=== PATIENT | male | born 1965 | race Caucasian/White ===

== ENCOUNTER → 2023-08-02 | Outpatient (CLI) | payer OTHER, SELFPAY ==
--- NOTE | 2023-08-02 12:52 | VDLE_ITS ---
Reason For Study: RLE Edema RIGHT LEFT GSV is normal. CFV is compressible, spontaneous, phasic, CFV is compressible, spontaneous, phasic, competent, and demonstrates normal competent and demonstrates normal augmentation. augmentation. FV is compressible, spontaneous, phasic, competent and demonstrates normal augmentation. POP V is compressible, spontaneous, phasic, competent and demonstrates normal augmentation. T/P Trunk is compressible. PTV is compressible. RT PerV is compressible. Procedure This is a venous duplex using B-mode, color flow and spectral Doppler. Exam performed in department. The exam was diagnostic. A preliminary report was called and/or faxed to Dr. Marrero. VL/Venous Duplex US, Unilateral Interpretation Summary There is no evidence of right lower extremity deep vein thrombosis. Right great saphenous vein appears patent and compressible segmentally. Normal flow patterns left common f emoral vein Ordering Physician: Pancho Marrero Referring Physician: Pancho Marrero Performed By: Tony Ventura RVT
== END | disposition home or self-care (01) ==
PROVIDERS: PCP Internal Medicine Infectious Disease; Referring Provider Internal Medicine Infectious Disease; Visit Provider Internal Medicine Infectious Disease
DX: R60.0 Localized edema (principal)
CPT/HCPCS: 93971

== ENCOUNTER 2024-06-15 11:53 | Outpatient (CLI) | payer OTHER, SELFPAY ==
--- NOTE | 2024-06-15 11:59 | US_ITS ---
PROCEDURE: KIDNEY AND BLADDER ([facility]), 06/15/2024 REASON FOR EXAM: CKD3 TECHNIQUE: Grayscale and color/spectral doppler ultrasound of the kidneys and bladder was performed. COMPARISON: None FINDINGS: Right kidney: 12.6 cm in length. No visualized mass, calculus, or hydronephrosis. Left kidney: 12.8 cm in length. No visualized mass, calculus, or hydronephrosis. Bladder: Estimated volume 257 mL. Mild mass-effect by the enlarged prostate as below. Other: Prostate measures 5.0 x 5.0 x 5.7 cm with slight mass-effect on the bladder (estimated volume 74 mL). Spleen measures 15.3 x 5.9 x 6.1 cm. Liver appears somewhat echogenic. US/Kidney and Bladder IMPRESSION: 1. Unremarkable sonographic appearance of the kidneys. No hydronephrosis. 2. Appearance of the imaged liver most typically associated with steatosis. Co rrelate for clinical and laboratory evidence of chronic liver disease. 3. Prostatomegaly. 4. Splenomegaly. Reading Location: [id number]
[2024-06-15 13:32] LABS: Absolute Lymphocyte Count 2.46 X10^3/uL (0.83-4.51); Absolute Neutrophil Count 4.1 X10^3/uL (2.0-7.7); Basophil# 0.07 X10^3/uL; Basophil% 0.9 % (0-1); Eosinophil# 0.58 X10^3/uL; Eosinophils% 7.5 % (0-5); Hematocrit 45.8 % (40-54); Hemoglobin 15.8 g/dL (13.0-16.5); Lymphocyte # 2.46 X10^3/ul (0.83-4.51); Lymphocyte % 31.9 % (19-41); Mean Corp Hgb Conc 34.5 g/dL (32-36); Mean Corpuscular Hgb 29.4 pg (27.0-32.0); Mean Corpuscular Volume 85.1 fL (80-94); Mean Platelet Vol. 10.5 fl (6.2-12.0); Monocyte# 0.46 X10^3/uL; NRBC Flagged by Analyzer 0 % (0-5); Neutrophil # 4.11 X10^3/uL (2.7-7.7); Neutrophil % 53.4 % (47-70); Platelet Count 231 K/mm3 (150-450); RBC Distribution Width CV 11.9 % (11.6-14.6); RBC Distribution Width SD 36.3 fl (35.1-43.9); Red Blood Count 5.38 M/mm3 (4.6-6.2); White Blood Count 7.7 K/mm3 (4.4-11.0)
[2024-06-15 14:50] LABS: Protein, Urine (Random) 66.5 mg/dL (0.0-12.0); Protein:Creat Ratio 2254 mg/g CRE (0-200)
[2024-06-15 14:55] LABS: PTHIN 68 pg/mL (11-61)
[2024-06-15 15:20] LABS: Ferritin 145 ng/mL (37-417); Iron 113 ug/dL (65-175); Iron Binding Capacity,Total 294 ug/dL (250-450); Iron Binding Capacity,Unsat 181 ug/dL (228-428); Uric Acid 7.7 mg/dL (3.5-7.2); Vitamin D,25 Hydroxy 21.4 ng/mL (30-100)
[2024-06-15 17:44] LABS: Anion Gap 11 (5-15); BUN 17 mg/dL (4-19); BUN/Creat Ratio 13.7 RATIO (10-20); Calcium,Total 9.1 mg/dL (7.6-11.0); Carbon Dioxide 21.3 mmol/L (21.0-32.0); Chloride 104 mmol/L (98-108); Creatinine, Serum 1.24 mg/dL (0.70-1.20); EST Glomerular Filtration Rate 68 (>60); Glucose 135 mg/dL (70-99); Protein, Total 6.8 g/dL (5.9-8.4); Sodium Level 137 mmol/L (133-145)
[2024-06-18 15:08] LABS: Albumin 3.3 g/dL (2.9-4.4); Alpha-1-Globulins 0.3 g/dL (0.0-0.4); Alpha-2-Globulins 0.7 g/dL (0.4-1.0); Immunoglobulin A 490 mg/dL (90-386); Immunoglobulin G 1129 mg/dL (603-1613); Immunoglobulin M 62 mg/dL (20-172); PROEL- TOTAL PROTEIN 6.7 g/dL (6.0-8.5); PROELU- Albumin, Urine 68.9 % (.); PROELU- Alpha-1-Globulin,Ur 4.3 % (.); PROELU- Alpha-2-Globulin,Ur 6.6 % (.); PROELU- Beta Globulin, Ur 12.2 % (.); Total Protein, Ur 86.6 mg/dL (Not Estab.)
== END 2024-06-15 23:59 | disposition home or self-care (01) ==
PROVIDERS: PCP Physician Assistant; Referring Provider Student in an Organized Health Care Education/Training Program; Visit Provider Student in an Organized Health Care Education/Training Program
DX: N18.31 Chronic kidney disease, stage 3a (principal); D63.1 Anemia in chronic kidney disease; E21.1 Secondary hyperparathyroidism, not elsewhere classified
CPT/HCPCS: 36415; 76770; 80048; 82306; 82570; 82728; 82784; 83540; 83550; 83970; 84155; 84156; 84165; 84166; 84550; 85025; 86334; 86335

== ENCOUNTER → 2024-09-07 | Outpatient (CLI) | payer OTHER, SELFPAY ==
[2024-09-07 16:26] LABS: Anion Gap 11 (5-15); BUN 23 mg/dL (4-19); BUN/Creat Ratio 14.5 RATIO (10-20); Calcium,Total 9.2 mg/dL (7.6-11.0); Carbon Dioxide 23.8 mmol/L (21.0-32.0); Chloride 108 mmol/L (98-108); Glucose 118 mg/dL (70-99); Potassium 4.0 mmol/L (3.3-5.1)
[2024-09-07 16:33] LABS: Creatinine, Urine (random) 233.00 mg/dL (39.00-259.00)
[2024-09-07 16:44] LABS: Protein, Urine (Random) 253.0 mg/dL (0.0-12.0); Protein:Creat Ratio 1086 mg/g CRE (0-200)
== END | disposition home or self-care (01) ==
LOC: LAB 14:44
PROVIDERS: PCP Physician Assistant; Referring Provider Student in an Organized Health Care Education/Training Program; Visit Provider Student in an Organized Health Care Education/Training Program
DX: N18.31 Chronic kidney disease, stage 3a (principal)
CPT/HCPCS: 36415; 80048; 82570; 84156